=== PATIENT | female | born 1945 | race Caucasian/White ===

== ENCOUNTER → 2021-09-16 | Outpatient (CLI) | payer OTHER ==
[~2021-09-16] MED LIST: ALL DAY ALLERGY10 M3 PO; ASPIR 8181 MG PO; ATORVASTATIN CA20 MG PO; CADUET 5 MG-201 EACH PO; CARAFATE1 GM PO; CYANOCOBAL1000 MCG/1 INJ; ELIQUIS 5 MG TAB5 MG PO; EVISTA 60 MG TA60 MG PO; HYZAAR 100-251 EACH PO; LANSOPRAZOLE30 MG PO; LINZESS145 MCG PO; LISINOPRIL5 MG PO; MELOXICAM7.5 MG PO; MONTELUKAST SOD10 MG PO; NEURONTIN800 MG PO; PERCOCET 5-3251 EACH PO; POTASSIUM99 M1 PO; PRESERVISION A1 EAC2 PO; TOPROL XL 50 MG50 MG PO; TOVIAZ8 MG PO
== END ==
LOC: CT 12:10 → KOH-I 13:00 → CT 13:00
DX: T84.031A Mechanical loosening of internal left hip prosthetic joint, initial encounter (principal)
CPT/HCPCS: 73700

== ENCOUNTER → 2021-10-21 | Outpatient (CLI) | payer OTHER | END | disposition home or self-care (01) | LOC: RAD 08:05 | DX: T84.011A Broken internal left hip prosthesis, initial encounter (principal) | CPT/HCPCS: 82945; 87070; 87205; Q9967 ==

== ENCOUNTER → 2021-11-30 | Outpatient (CLI) | payer OTHER ==
[~2021-11-30] MED LIST changes: +HYDROCODON-ACE1 EAC2 PO; +LASIX 40 MG TAB40 MG PO; +MULTAQ 400 MG400 MG PO; +MYRBETRIQ25 MG PO; +VENTOLIN INH
[2021-11-30 14:31] LABS: HEMOGLOBIN 11.1 gm/dl (12.3-15.3); RED BLOOD COUNT 3.81 M/UL (4.00-5.10); WHITE BLOOD COUNT 3.7 K/UL (4.5-11.0)
[2021-11-30 14:59] LABS: BUN/CREATININE RATIO 22 (0-10)
== END ==
LOC: EDSTATUS 12:30 → OPSV2 12:30
PROVIDERS: Orthopaedic Surgery
DX: Z01.818 Encounter for other preprocedural examination (principal); T84.031A Mechanical loosening of internal left hip prosthetic joint, initial encounter; J90 Pleural effusion, not elsewhere classified; I45.2 Bifascicular block; R94.31 Abnormal electrocardiogram [ECG] [EKG]
CPT/HCPCS: 71046; 80048; 83036; 85027; 85652; 86140; 93005

== ENCOUNTER → 2021-12-06 | Outpatient (CLI) | payer OTHER | LOC: ECHO 08:28 | DX: I10 Essential (primary) hypertension (principal); I48.91 Unspecified atrial fibrillation; R60.9 Edema, unspecified; I27.20 Pulmonary hypertension, unspecified; I08.1 Rheumatic disorders of both mitral and tricuspid valves | CPT/HCPCS: ECHO; 93306 ==

== ENCOUNTER → 2022-01-10 | Outpatient (CLI) | payer OTHER ==
[2022-01-10 11:01] LABS: HEMOGLOBIN 10.6 gm/dl (12.3-15.3); RED BLOOD COUNT 3.76 M/UL (4.00-5.10); WHITE BLOOD COUNT 3.1 K/UL (4.5-11.0)
[2022-01-10 11:25] LABS: BUN/CREATININE RATIO 19 (0-10)
== END ==
LOC: OPSV2 09:54 → EDSTATUS 10:00 → OPSV2 10:00
PROVIDERS: Orthopaedic Surgery
DX: Z01.818 Encounter for other preprocedural examination (principal); T84.031A Mechanical loosening of internal left hip prosthetic joint, initial encounter
CPT/HCPCS: 36415; 71046; 80048; 85027; 93005

== ENCOUNTER → 2022-01-18 | Outpatient (CLI) | payer OTHER ==
[~2022-01-18] MED LIST changes: +ATORVASTATIN CA80 MG PO; +CYCLOBENZAPRINE10 MG PO; +ELIQUIS2.5 MG PO; +ELIQUIS5 MG PO; +ENDOCET 7.5-321 EACH PO; +LISINOPRIL2.5 MG PO; +METOPROLOL SUCC50 MG PO; +PROVENTIL HFA6.7 GM INH; -VENTOLIN INH; +ZOFRAN 4 MG TAB4 MG PO
[2022-01-18 11:48] LABS: BUN/CREATININE RATIO 19 (0-10)
== END ==
LOC: LAB 09:58
PROVIDERS: Orthopaedic Surgery
DX: Z01.812 Encounter for preprocedural laboratory examination (principal)
CPT/HCPCS: 36415; 80048; 86850; 86900; 86901

== ENCOUNTER 2022-01-19 06:34 | Inpatient (IN) | payer OTHER ==
[~2022-01-19] VITALS: Ht 170.2 cm; Wt 83.9 kg
[~2022-01-19 06:34] MED LIST changes: -ATORVASTATIN CA80 MG PO; -CYCLOBENZAPRINE10 MG PO; -ELIQUIS2.5 MG PO; -ELIQUIS5 MG PO; -ENDOCET 7.5-321 EACH PO; -LISINOPRIL2.5 MG PO; -METOPROLOL SUCC50 MG PO; -ZOFRAN 4 MG TAB4 MG PO
[2022-01-19] MEDS ORDERED: CYCLOBENZAPRINE10 MG PO (11:00)
[2022-01-19] MEDS ORDERED: ELIQUIS2.5 MG PO (11:00)
[2022-01-19] MEDS ORDERED: ENDOCET 7.5-321 EACH PO (11:00)
[2022-01-19] MEDS ORDERED: ZOFRAN 4 MG TAB4 MG PO (11:00)
[2022-01-19 14:20] LABS: HEMOGLOBIN 10.5 gm/dl (12.3-15.3)
[2022-01-19 14:49] LABS: BUN/CREATININE RATIO 23 (0-10)
[2022-01-19 16:09] LABS: RED BLOOD COUNT 3.67 M/UL (4.00-5.10); WHITE BLOOD COUNT 5.6 K/UL (4.5-11.0)
[2022-01-19] MEDS ORDERED: ATORVASTATIN CA80 MG PO (17:13)
[2022-01-19] MEDS ORDERED: LISINOPRIL2.5 MG PO (17:15)
[2022-01-19] MEDS ORDERED: METOPROLOL SUCC50 MG PO (17:16)
[2022-01-19] MEDS ORDERED: ELIQUIS5 MG PO (17:19)
[2022-01-20 02:29] LABS: HEMOGLOBIN 9.8 gm/dl (12.3-15.3); RED BLOOD COUNT 3.43 M/UL (4.00-5.10); WHITE BLOOD COUNT 6.2 K/UL (4.5-11.0)
[2022-01-20 02:47] LABS: BUN/CREATININE RATIO 26 (0-10)
[2022-01-21 02:27] LABS: HEMOGLOBIN 8.6 gm/dl (12.3-15.3); WHITE BLOOD COUNT 6.1 K/UL (4.5-11.0)
[2022-01-21 02:29] LABS: RED BLOOD COUNT 3.01 M/UL (4.00-5.10)
[2022-01-21 02:50] LABS: BUN/CREATININE RATIO 20 (0-10)
[2022-01-22 06:06] LABS: HEMOGLOBIN 8.5 gm/dl (12.3-15.3); RED BLOOD COUNT 2.97 M/UL (4.00-5.10); WHITE BLOOD COUNT 5.2 K/UL (4.5-11.0)
[2022-01-22 07:26] LABS: BUN/CREATININE RATIO 19 (0-10)
[2022-01-23 02:50] LABS: HEMOGLOBIN 7.9 gm/dl (12.3-15.3); RED BLOOD COUNT 2.77 M/UL (4.00-5.10); WHITE BLOOD COUNT 4.5 K/UL (4.5-11.0)
[2022-01-24 06:02] LABS: HEMOGLOBIN 8.3 gm/dl (12.3-15.3); RED BLOOD COUNT 2.97 M/UL (4.00-5.10)
[2022-01-24] MEDS ORDERED: NEURONTIN800 MG PO (15:44)
== END 2022-01-24 16:35 | DRG 467 ==
LOC: OR 06:34 → M/S 15:11 → OR 01-24 18:00
PROVIDERS: Anesthesiology; Internal Medicine; Nurse Practitioner Family; ADMIT Orthopaedic Surgery
PROC: 0SPB0JZ Removal of Synthetic Substitute from Left Hip Joint, Open Approach (ICD-10-PCS; 2022-01-19)
PROC: 0SRB01Z Replacement of Left Hip Joint with Metal Synthetic Substitute, Open Approach (ICD-10-PCS; principal; 2022-01-19 10:30)
DX: T84.031A Mechanical loosening of internal left hip prosthetic joint, initial encounter (principal); D62 Acute posthemorrhagic anemia; I10 Essential (primary) hypertension; E11.9 Type 2 diabetes mellitus without complications; Z96.611 Presence of right artificial shoulder joint; Z96.651 Presence of right artificial knee joint; R00.1 Bradycardia, unspecified; I48.0 Paroxysmal atrial fibrillation; I16.0 Hypertensive urgency; Z96.643 Presence of artificial hip joint, bilateral; D69.6 Thrombocytopenia, unspecified; Z85.3 Personal history of malignant neoplasm of breast; Z79.01 Long term (current) use of anticoagulants; Z79.82 Long term (current) use of aspirin; Z90.11 Acquired absence of right breast and nipple; Z90.49 Acquired absence of other specified parts of digestive tract; Z98.890 Other specified postprocedural states; Z79.899 Other long term (current) drug therapy
CPT/HCPCS: 36415; 73501; 73502; 76000; 80048; 80061; 80076; 80202; 82962; 83036; 84439; 84443; 85025; 85027; 86140; 87070; 87205; 93270; 94640; 94664; 94760; 97110-GP-CQ; 97116-GP-CQ; 97162; 97165; 97530; 97530-GP-CQ; C1776; J0171; J0360; J0690; J1100; J1170; J1644; J2001; J2270; J2274; J2405; J2704; J2795; J3010; J3370; J7040; J7070